=== PATIENT | male | born 1990 | race Caucasian/White ===

== ENCOUNTER 2018-04-04 16:55 | Emergency (ER) | payer OTHER ==
[2018-04-04] MEDS ORDERED: DIPH/PERTUSS(ACELL)/TETANUS VAC/PF 0.5 ML SYR (>=10YO) IM ONE (18:01)
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
--- NOTE | 2018-04-04 18:52 | RADIOLOGY REPORT (SQ) ---
EXAM DESCRIPTION: FOREARM RIGHT COMPLETED DATE/TIME: 04/04/2018 6:35 pm REASON FOR STUDY: right puncture COMPARISON: None. NUMBER OF VIEWS: Two views. TECHNIQUE: Two radiographic images acquired of the right forearm, including elbow and wrist in at le ast one projection. LIMITATIONS: None. FINDINGS: MINERALIZATION: Normal. BONES: No acute fracture. No worrisome bone lesions. SOFT TISSUES: Mild swelling. No radiopaque foreign body. OTHER: No other significant finding. IMPRESSION: No fracture or radiopaque foreign body. TECHNICAL DOCUMENTATION: JOB ID: [id number] [place]-72 2010 [employer]- All Rights Reserved Reading location - IP/workstation name: [email or web address]
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
[2018-04-04 20:22] VITALS: BP 155/79
== END 2018-04-04 20:20 | disposition home or self-care (01) ==
LOC: ER 16:55
DX: S51.831A Puncture wound without foreign body of right forearm, initial encounter (principal); S41.111A Laceration without foreign body of right upper arm, initial encounter; W45.8XXA Other foreign body or object entering through skin, initial encounter; Y93.75 Activity, martial arts; Z88.0 Allergy status to penicillin; Z88.8 Allergy status to other drugs, medicaments and biological substances; F17.200 Nicotine dependence, unspecified, uncomplicated; J45.909 Unspecified asthma, uncomplicated; Z23 Encounter for immunization
CPT/HCPCS: 90471; 90715; 99283

== ENCOUNTER 2018-04-04 23:07 | Emergency (ER) | payer OTHER ==
[2018-04-05] MEDS ORDERED: LIDOCAINE 1%/EPINEPHRINE INJ 20 ML VIAL INJ ONE (00:49)
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
[2018-04-05] MEDS ORDERED: TRANEXAMIC ACID INJ/PF 1,000 MG/10 ML SDV IV ONE (01:15)
[2018-04-05 02:50] VITALS: BP 155/92
== END 2018-04-05 02:48 | disposition home or self-care (01) ==
LOC: ER 23:07
DX: S41.111A Laceration without foreign body of right upper arm, initial encounter (principal); S51.811A Laceration without foreign body of right forearm, initial encounter; W26.0XXA Contact with knife, initial encounter; F17.200 Nicotine dependence, unspecified, uncomplicated; J45.909 Unspecified asthma, uncomplicated
CPT/HCPCS: 99281; 96374; 12001; J3490 ×2